=== PATIENT | female | born 1990 | race Caucasian/White ===

== ENCOUNTER 2018-01-13 21:46 | Emergency (ER) | payer MEDICAID ==
[2018-01-13 21:59] VITALS: BP 111/71
--- NOTE | 2018-01-13 22:21 | EDM.PDOC ---
ED HPI GENERAL MEDICAL PROBLEM - General Chief Complaint: ENT Problem Stated Complaint: SINUS INFECTION? Time Seen by Provider: 01/13/18 22:17 Source of Information: Reports: Patient History Limitations: Reports: No Limitations - History of Present Illness INITIAL COMMENTS - FREE TEXT/NARRATIVE: Regi presents today for complaints of sinus congestion, migraine for 7 to 10 days. She also complains of general malaise and body aches. She reports acute fever, chills and sore throat for 2 days with fever to 102.5. She has tried use of acetaminophen for her pain and fever. 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 Psychiatric History: Reports: Depression Endocrine/Metabolic History: Reports: Diabetes, Gestational Dermatologic History: Reports: Eczema - Infectious Disease History Infectious Disease History: Reports: Chicken Pox Social & Family History - Family History Family Medical History: Noncontributory HEENT: Reports: Impaired Vision Cardiac: Reports: [place] Musculoskeletal: Reports: Arthritis Psychiatric: Reports: Anxiety, Depression Oncologic: Reports: Breast, Cervix ED ROS ENT - Review of Systems Review Of Systems: See Below Constitutional: Reports: Fever, Chills, Malaise. Denies: Weakness, Fatigue, Night Sweats, Diaphoresis HEENT: Reports: Nosebleed, Rhinitis, Sinus Problem, Throat Pain. Denies: Ear Discharge, Ear Pain, Nose Pain Respiratory: Reports: Cough. Denies: Shortness of Breath, Wheezing, Sputum Cardiovascular: Denies: Chest Pain, Dyspnea on Exertion, Edema, Lightheadedness , Palpitations, PND, Syncope Endocrine: Reports: No Symptoms GI/Abdominal: Reports: Nausea. Denies: Constipation, Diarrhea, Difficulty Swallowing, Vomiting : Reports: No Symptoms Musculoskeletal: Reports: No Symptoms Skin: Denies: Pallor, Diaphoresis, Bruising, Rash, Erythema, Wound, Lumps, Urticaria Neurological: Reports: No Symptoms Psychiatric: Reports: No Symptoms Hematologic/Lymphatic: Reports: No Symptoms Immunologic: Reports: No Symptoms ED EXAM, ENT - Physical Exam Exam: See Below Text/Narrative:: Regi is an alert and oriented 27 year old female presenting for acute fever ( 102.5), chills and sore throat for 2 days. She has tried use of acetaminophen for her pain and fever. Regi also complains of sinus congestion, migraine for 7 to 10 days with general malaise and body aches. Exam Limited By: No Limitations General Appearance: Alert, WD/WN, Mild Distress Eye Exam: Bilateral Eye: EOMI, Normal Inspection Ears: Normal External Exam, Normal Canal, Hearing Grossly Normal, Normal TMs Nose: Normal Inspection, Injected Turbinates, Other (purulent nasal discharge). No: Nasal Deformity, Nasal Ecchymosis Mouth/Throat: Normal Inspection, Normal Gums, Normal Lips, Pharyngeal Erythema, Throat Pain, Other (Tonsills absent). No: Throat Swelling, Uvular Edema Head: Atraumatic, Normocephalic, Facial Tenderness, Sinus Tenderness. No: Facial Ecchymosis, Facial Swelling Neck: Normal Inspection, Supple, Non-Tender, Full Range of Motion. No: Lymphadenopathy (R), Lymphadenopathy (L) Respiratory/Chest: No Respiratory Distress, Lungs Clear, Normal Breath Sounds, No Accessory Muscle Use, Chest Non-Tender Cardiovascular: Normal Peripheral Pulses, Regular Rate, Rhythm, No Edema, No Murmur, No Rub Back: Normal Inspection, Full Range of Motion. No: CVA Tenderness (R), CVA Tenderness (L) Extremities: Normal Inspection, Normal Range of Motion, Non-Tender, No Pedal Edema, Normal Capillary Refill Neurological: Alert, Oriented, CN II-XII Intact, Normal Cognition, Normal Gait, Normal Reflexes, No Motor/Sensory Deficits Psychiatric: Normal Affect, Normal Mood Skin: Warm, Dry, Intact, Normal Color, No Rash Lymphatic: No Adenopathy Course - Vital Signs Last Recorded V/S: Last Vital Signs Temp 36.6 C 01/13/18 22:22 Pulse 76 01/13/18 22:22 Resp 16 01/13/18 22:22 BP 111/71 01/13/18 22:22 Pulse Ox 100 01/13/18 22:22 - Orders/Labs/Meds Orders: Active Orders 24 hr Category Date Time Status CULTURE STREP A CONFIRMATION [RM] Stat Lab 01/13/18 22:18 Results STREP SCRN A RAPID W CULT CONF [RM] Stat Lab 01/13/18 22:18 Ordered Departure - Departure Time of Disposition: 22:42 Disposition: Home, Self-Care 01 Condition: Good Clinical Impression: Acute sinusitis, Post-nasal drip - Discharge Information Instructions: Sinusitis, Adult, [id number], Sinus Rinse, [id number] Referrals: PCP,None [Primary Care Provider] - Forms: ED Department Discharge Additional Instructions: You have been evaluated and treated in the emergency room tonight for acute sinusitis and post nasal drip. Take Augmentin (antibiotic) one tablet by mouth twice per day for 10 days. You can also buy fluticasone nasal spray over the counter and use two sprays to each nare once a day for congestion. Use of chlorpheniramine 4mg tablet every 4 to 6 hours can help with post nasal drip. This medication can make you sleep. Take acetaminophen and ibuprofen as needed for pain. Return for worsening, issues or concerns. - My Orders Last 24 Hours: My Active Orders 01/13/18 22:18 CULTURE STREP A CONFIRMATION [RM] Stat STREP SCRN A RAPID W CULT CONF [RM] Stat - Assessment/Plan Last 24 Hours: My Active Orders 01/13/18 22:18 CULTURE STREP A CONFIRMATION [RM] Stat STREP SCRN A RAPID W CULT CONF [RM] Stat Assessment:: Acute sinus congestion Post nasal drip Plan: Patient evaluated and treated in the emergency room tonight for acute sinusitis and post nasal drip. Take Augmentin (antibiotic) one tablet by mouth twice per day for 10 days. She can also buy fluticasone nasal spray over the counter and use two sprays to each nare once a day for congestion. Use of chlorpheniramine 4mg tablet every 4 to 6 hours can help with post nasal drip. This medication can make you sleep. Take acetaminophen and ibuprofen as needed for pain. Return for worsening, issues or concerns.
== END 2018-01-13 22:59 | disposition home or self-care (01) ==
LOC: JP.ED 21:46
DX: J01.90 Acute sinusitis, unspecified (principal); R09.82 Postnasal drip; Z79.899 Other long term (current) drug therapy; F32.9 Major depressive disorder, single episode, unspecified
CPT/HCPCS: 87081; 87430; 99284

== ENCOUNTER 2018-01-15 14:19 | Emergency (ER) | payer MEDICAID ==
[2018-01-15 15:13] VITALS: BP 100/62
--- NOTE | 2018-01-15 18:14 | EDM.PDOC ---
ED HPI GENERAL MEDICAL PROBLEM - General Chief Complaint: MUD ENGINEER Problem Stated Complaint: CRAMPING Time Seen by Provider: 01/15/18 17:55 Source of Information: Reports: Patient History Limitations: Reports: No Limitations - History of Present Illness INITIAL COMMENTS - FREE TEXT/NARRATIVE: 27-year-old female who is been having lower pelvic pain for the past 2 months, worse after intercourse, and much worse after intercourse this morning. The pain tends to settle down after an hour or 2 but today it wasn't getting better , she does have a history of ovarian cysts requiring surgery and feels she may have another cyst problem. No fevers or chills, no bowel changes, no dysuria or urinary symptoms. She took a test 2 weeks ago and it was negative. Onset: Sudden (Pain worsened suddenly this morning after intercourse) Location: Reports: Pelvis (Centered in the left pelvis) Severity: Moderate Associated Symptoms: Denies: Fever/Chills, Headaches, Loss of Appetite, Nausea/ Vomiting, Shortness of Breath Left Lower Pelvic Pain Score (Numeric/FACES): 8 - Related Data Allergies Allergy/AdvReac Type Severity Reaction Status Date / Time No Known Allergies Allergy Verified 01/13/18 22:10 Home Meds: Home Meds Desog-E.Estradiol/E.Estradiol [Viorele 28 Day Tablet] 1 tab PO DAILY 11/28/15 [ History] Albuterol [Ventolin HFA] 1 puff IH Q4HR PRN 02/28/16 [History] Olopatadine HCl [Pataday] 1 drop EYERT BID 02/28/16 [History] Past Medical History HEENT History: Reports: Impaired Vision 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 Neurological History: Reports: Migraines Psychiatric History: Reports: Depression Endocrine/Metabolic History: Reports: Diabetes, Gestational Dermatologic History: Reports: Eczema - Infectious Disease History Infectious Disease History: Reports: Chicken Pox - Past Surgical History GI Surgical History: Reports: Appendectomy Female Surgical History: Reports: Other (See Below) Other Female Surgeries/Procedures: right fallopian tube removed due to ectopic Social & Family History - Family History Family Medical History: Noncontributory HEENT: Reports: Impaired Vision Cardiac: Reports: [place] Musculoskeletal: Reports: Arthritis Psychiatric: Reports: Anxiety, Depression Oncologic: Reports: Breast, Cervix - Tobacco Use Smoking Status *Q: Current Every Day Smoker Years of Tobacco use: 10 Packs/Tins Daily: 0.6 - Caffeine Use Caffeine Use: Reports: None - Recreational Drug Use Recreational Drug Use: Yes Drug Use in Last 12 Months: Yes Recreational Drug Type: Reports: Marijuana/Hashish Recreational Drug Use Frequency: Daily ED ROS GENERAL - Review of Systems Review Of Systems: See Below Constitutional: Denies: Fever, Chills HEENT: Reports: No Symptoms Respiratory: Denies: Shortness of Breath Cardiovascular: Denies: Chest Pain GI/Abdominal: Reports: Abdominal Pain. Denies: Nausea, Vomiting : Reports: No Symptoms Skin: Reports: No Symptoms Neurological: Reports: No Symptoms Psychiatric: Reports: No Symptoms ED EXAM, GENERAL - Physical Exam Exam: See Below Exam Limited By: No Limitations General Appearance: Alert, No Apparent Distress Respiratory/Chest: No Respiratory Distress, Lungs Clear Cardiovascular: Regular Rate, Rhythm GI/Abdominal: Soft, Tender (Left lower quadrant, no significant guarding) Neurological: Alert, Oriented Psychiatric: Normal Affect, Normal Mood Skin Exam: Warm, Dry Course - Vital Signs Last Recorded V/S: Last Vital Signs Temp 98.1 F 01/15/18 15:41 Pulse 54 L 01/15/18 15:41 Resp 13 01/15/18 15:41 BP 100/62 01/15/18 15:41 Pulse Ox 100 01/15/18 15:41 - Orders/Labs/Meds Orders: Active Orders 24 hr Category Date Time Status Pelvis Non OB Ltd [US] Stat Exams 01/15/18 17:53 Taken Transvaginal Non OB [US] Stat Exams 01/15/18 17:54 Taken Labs: Laboratory Tests 01/15/18 01/15/18 01/15/18 Range/Units 18:03 18:03 18:03 WBC 4.9 (4.5-11.0) K/uL RBC 4.51 (3.30-5.50) M/uL Hgb 14.2 (12.0-15.0) g/dL Hct 40.6 (36.0-48.0) % MCV 90 (80-98) fL MCH 32 H (27-31) pg MCHC 35 (32-36) % Plt Count 184 (150-400) K/uL Neut % (Auto) 46 (36-66) % Lymph % (Auto) 41 (24-44) % [place] % (Auto) 10 H (2-6) % Eos % (Auto) 2 (2-4) % Baso % (Auto) 1 (0-1) % Sodium 139 L (140-148) mmol/L Potassium 3.6 (3.6-5.2) mmol/L Chloride 102 (100-108) mmol/L Carbon Dioxide 27 (21-32) mmol/L Anion Gap 13.6 (5.0-14.0) mmol/L BUN 13 (7-18) mg/dL Creatinine 0.6 (0.6-1.0) mg/dL Est Cr Clr Drug Dosing 112.38 mL/min Estimated GFR (MDRD) > 60 (>60) Glucose 88 (74-106) mg/dL Calcium 8.8 (8.5-10.1) mg/dL HCG, Qual Negative - Re-Assessments/Exams Free Text/Narrative Re-Assessment/Exam: 01/15/18 18:14 CBC, BMP, qualitative beta-hCG are drawn and a pelvic ultrasound will be obtained. 01/15/18 19:30 was negative. CBC was normal. Pelvic ultrasound did confirm a large complex hemorrhagic mass of the left ovary. The right ovary was normal with good blood flow. There was very little free fluid. She was tender however over the mass. She is very anxious to have this taken care of, does not want to have kids in the future and I discussed the case with Dr. Quan and he agreed to see her tomorrow morning for likely oophorectomy. 01/15/18 19:33 Patient was discharged with 10 Percocet to take as needed for pain control tonight and will return tomorrow morning. Departure - Departure Time of Disposition: 19:42 Disposition: Home, Self-Care 01 Condition: Good Clinical Impression: Hemorrhagic cyst of left ovary - Discharge Information Instructions: Ovarian Cyst, [id number] Referrals: PCP,None [Primary Care Provider] - Forms: ED Department Discharge Care Plan Goals: Use pain control as directed, and don't eat anything after 2 AM. Return to the hospital around 8 to 8:30 to be admitted for a likely surgical treatment for your ovarian cyst. - My Orders Last 24 Hours: My Active Orders 01/15/18 17:53 Pelvis Non OB Ltd [US] Stat 01/15/18 17:54 Transvaginal Non OB [US] Stat - Assessment/Plan Last 24 Hours: My Active Orders 01/15/18 17:53 Pelvis Non OB Ltd [US] Stat 01/15/18 17:54 Transvaginal Non OB [US] Stat
== END 2018-01-15 19:42 | disposition home or self-care (01) ==
LOC: JP.ED 14:19
DX: N83.202 Unspecified ovarian cyst, left side (principal); F17.210 Nicotine dependence, cigarettes, uncomplicated; F32.9 Major depressive disorder, single episode, unspecified; Z79.899 Other long term (current) drug therapy; Z90.49 Acquired absence of other specified parts of digestive tract
CPT/HCPCS: 36415; 76830; 76857; 80048; 84703; 85025; 99284-25

== ENCOUNTER 2018-01-16 08:07 | Day surgery (SDC) | payer MEDICAID ==
[2018-01-16] MEDS ORDERED: Acetaminophen 500 MG Tab PO ONE (09:05)
[2018-01-16] MEDS ORDERED: Dextrose 5%-Lactated Ringers 1,000 ML IV SCH (09:15)
[2018-01-16] MEDS ORDERED: Meropenem 500 MG SDV ONE (09:20)
[2018-01-16] MEDS ORDERED: Bupivacaine 0.5%/EPINEPHrine 1:200,000 50 ML MDV ONE (09:20)
[2018-01-16] MEDS ORDERED: cefOXitin 2 GM in Sodium Chloride 0.9% 50 ML IV ONE (09:30)
[2018-01-16] MEDS ORDERED: Propofol 200 MG/20 ML SDV ONE (09:36)
[2018-01-16] MEDS ORDERED: Neostigmine Methylsulfate 1 MG/ML 5 ML Syringe ONE (09:36)
[2018-01-16] MEDS ORDERED: Dexamethasone 4 MG/ML SDV ONE (09:36)
[2018-01-16] MEDS ORDERED: Glycopyrrolate 0.2 MG/ML 5 ML MDV ONE (09:36)
[2018-01-16] MEDS ORDERED: Ondansetron 4 MG/2 ML SDV ONE (09:36)
[2018-01-16] MEDS ORDERED: fentaNYL 250 MCG/5 ML SDV ONE (09:36)
[2018-01-16] MEDS ORDERED: Albuterol/Ipratropium 3.0-0.5 MG/3 ML Neb Soln NEB ONE (10:15)
[2018-01-16] MEDS ORDERED: HYDROmorphone/Normal Saline 15 MG/30 ML PCA IV PRN (10:40)
[2018-01-16] MEDS ORDERED: Naloxone 0.4 MG/ML SDV IVPUSH PRN (10:40)
[2018-01-16] MEDS ORDERED: Ketamine 500 MG/5 ML MDV IV SCH (11:00)
[2018-01-16] MEDS ORDERED: hydrOXYzine HCl 100 MG/2 ML SDV IM ONE (11:58)
[2018-01-16] MEDS ORDERED: Ondansetron 4 MG/2 ML SDV IV PRN (13:22)
[2018-01-16] MEDS ORDERED: hydrOXYzine HCl 100 MG/2 ML SDV IM PRN (13:23)
[2018-01-16] MEDS ORDERED: Albuterol 8 GM Inhaler INH PRN (13:25)
[2018-01-16] MEDS: Acetaminophen/oxyCODONE 325-5 MG Tab PO PRN ×2 (16:58→20:25)
[2018-01-16] MEDS: Dextrose 5%-Lactated Ringers 1,000 ML IV SCH (18:59)
[2018-01-17] MEDS: Acetaminophen/oxyCODONE 325-5 MG Tab PO PRN ×2 (00:20→05:23)
[2018-01-17] MEDS: Dextrose 5%-Lactated Ringers 1,000 ML IV SCH (02:59)
[2018-01-17 07:39] VITALS: BP 114/71
[2018-01-17] MEDS ORDERED: Acetaminophen/oxyCODONE 325-5 MG Tab PO PRN (07:47)
[2018-01-17] MEDS ORDERED: Docusate Sodium 100 MG Cap PO SCH (09:00)
[2018-01-17] MEDS ORDERED: Magnesium Hydroxide 400 MG/5 ML Susp 30 ML Cup PO ONE (09:15)
--- NOTE | 2018-01-17 12:35 | DISCH ---
ADMISSION DIAGNOSIS: Hemorrhagic left ovarian cyst. DISCHARGE DIAGNOSES: Diagnostic laparoscopy with left salpingo-oophorectomy and ablation of endometriosis for hemorrhagic ovarian cyst and endometriosis. Date of surgery, 01/16/2018. HISTORY: Regi Jain is a 27-year-old female who presented with severe left lower quadrant abdominal pain. After preoperative evaluation and discussion of possible risks and possible complications, she wished to proceed with surgical procedure. HOSPITAL COURSE: Regi had her surgery on 01/16/2018. She had no operative complications. On postop day #1, she was ready to be discharged to home. PHYSICAL EXAMINATION: GENERAL: Regi is a 27-year-old female. VITAL SIGNS: Height is 5 feet 2 inches. Weight is 120 pounds. TPR 95.6, 85, 16, and blood pressure 114/71. HEENT: Negative. NECK: Supple. HEART: Regular rate and rhythm. LUNGS: Clear. ABDOMEN: Dressings dry and intact. Abdominal binder is on. EXTREMITIES: Without peripheral edema. DISPOSITION: Discharged to home. CONDITION: Stable and improving. FOLLOWUP: Inga Patterson PA-C, at [facility] on 01/25/2018 at 10 a.m. DISCHARGE MEDICATIONS: Home Medications: 1. Percocet 5/325 mg 1 to 2 oral q.4 hours p.r.n. pain, #40. 2. Colace 100 mg oral daily, #100. 3. Milk of magnesia 30 mL. Two were sent home with the patient to take one today and one in a.m. DISCHARGE DIET: Regular diet as tolerated. ACTIVITY: No lifting greater than 10 pounds for 6 weeks[address], do not drive while on pain medication. Shower/bathing, may shower. DISCHARGE INSTRUCTIONS: Notify provider if any fever, increased pain, nausea, vomiting, drainage from incision sites. Wound and incision care, keep site clean and dry. Wear abdominal binder for 6 weeks and then as tolerated. Use incentive spirometer 10 times every hour while awake for 1 week.
--- NOTE | 2018-01-18 10:47 | OR ---
DATE OF PROCEDURE: 01/16/2018 PREOPERATIVE DIAGNOSIS: Painful hemorrhagic left ovarian cyst. POSTOPERATIVE DIAGNOSES: 1. Painful hemorrhagic left ovarian cyst. 2. Left-sided pelvic endometriosis. PROCEDURE PERFORMED: Diagnostic laparoscopy with, 1. Left salpingo-oophorectomy, (30942). 2. Ablation of pelvic endometriosis, (79902). ANESTHESIA: General. INDICATION FOR PROCEDURE: The patient presents with some ongoing abdominal pain and CT scan shows what appears to be hemorrhagic ovarian cyst. The patient is status post previous left salpingectomy for an ectopic . She has had two children and she and her significant other this morning no not desire further childbearing, although at this young age we certainly would maintain that possibility if it appears to be clinically feasible. The plan will be to proceed with diagnostic laparoscopy, laparotomy if necessary, and excision of the hemorrhagic left ovarian cyst as well as probable ovary. If the uterine tube on that side is more or less densely adherent and part of the overall pathologic picture that would be removed as well. The patient does have a normal-appearing right ovary on preoperative imaging. So this would likely be left in place so that she would not become immediately menopausal. She is aware that if we needed to take the tube out on the left side as part of this procedure, that she would be functionally sterile apart from in vitro fertilization approach with harvesting of an ovum from the remaining right ovary. Potential risks, otherwise, including bleeding, infection, injury to underlying viscera or urinary tract were reviewed, and the patient wishes to proceed. DETAILS OF PROCEDURE: The patient was taken to the operating room and placed in a supine position. After general endotracheal anesthesia was induced, a Jimenez catheter was inserted, and the abdomen was prepped and draped. At this point, three trocars were placed across the upper abdomen, two of these were 12-mm trocars, one was 5-mm trocar. The lower abdomen was examined. The ovary was identified and this was found to be entirely normal in appearance as the left ovary was occupied by large amount of hemorrhage. The ovarian tissue and uterine tube were more or less one confluent mass and do not feel feasible to save the ovarian tissue or uterine tube in this case. Given this, the infundibulopelvic ligament, uterine tube, and remaining attachments to the left tube and ovary were divided with DAWN tammy and specimen was then placed in a specimen bag and after puncturing the cyst, the fluid was evacuated. The incision still needed to be enlarged somewhat in order to retrieve the specimen, which was then removed at that point. Inspection of the pelvis revealed no further bleeding or other problems from the staple lines. The patient did have some scattered pelvic endometriosis on the left side of the pelvic wall. These were areas of perhaps 2 to 3 mm implants and overall ablated with electrocautery. At that point, no further problems were noted. The trocars were removed. The fascia at the point where the specimen had been retrieved was closed at fascial level with 4-0 Vicryl sutures, and skin at each incision with 4-0 Vicryl skin stitch. Dressing was applied. The patient was taken to the recovery room in satisfactory condition. Long Quan MD /[id number]
== END 2018-01-17 08:43 | disposition home or self-care (01) ==
LOC: JP.SDS 08:07 → JP.ACU 08:07 → JP.MS 12:10 → JP.SDS 01-17 08:43
PROVIDERS: ATTEND Surgery
DX: N83.202 Unspecified ovarian cyst, left side (principal); N80.3 Endometriosis of pelvic peritoneum; G43.909 Migraine, unspecified, not intractable, without status migrainosus; F32.9 Major depressive disorder, single episode, unspecified; F17.210 Nicotine dependence, cigarettes, uncomplicated; Z90.49 Acquired absence of other specified parts of digestive tract
CPT/HCPCS: 58661; 58662; 94640; A9270; J0694; J1100; J1170; J2405; J2704; J2710; J3010; J3410; J7042; J7050; J7620; J2185

== ENCOUNTER 2019-09-22 17:11 | Emergency (ER) | payer SELFPAY ==
[2019-09-22 17:51] VITALS: BP 119/62; PULSE 61
--- NOTE | 2019-09-22 18:32 | EDM.PDOC ---
ED HPI GENERAL MEDICAL PROBLEM - General Chief Complaint: Abdominal Pain Stated Complaint: LOWER AB PAIN Time Seen by Provider: 09/22/19 18:16 Source of Information: Reports: Patient History Limitations: Reports: No Limitations - History of Present Illness INITIAL COMMENTS - FREE TEXT/NARRATIVE: Patient presents describing sudden onset LLQ/flank pain around 1600 today. This happened before and has been attributed to ruptured ovarian cysts. She had her right ovary and both Fallopian tubes removed several years ago. The left ovary and uterus remain. Her last menstrual period was about one month ago. 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 Neurological History: Reports: Migraines Psychiatric History: Reports: Anxiety, Depression, Psych Hospitalization(s), Suicide Attempt Endocrine/Metabolic History: Reports: Diabetes, Gestational Dermatologic History: Reports: Eczema - Infectious Disease History Infectious Disease History: Reports: Chicken Pox - Past Surgical History HEENT Surgical History: Reports: Adenoidectomy, Oral Surgery, Tonsillectomy GI Surgical History: Reports: Appendectomy Female Surgical History: Reports: Other (See Below) Other Female Surgeries/Procedures: right fallopian tube removed due to ectopic Endocrine Surgical History: Reports: None Neurological Surgical History: Reports: None Dermatological Surgical History: Reports: None Social & Family History - Family History Family Medical History: Noncontributory HEENT: Reports: Impaired Vision Cardiac: Reports: [place] : Reports: Renal Calculus Musculoskeletal: Reports: Arthritis Psychiatric: Reports: Anxiety, Depression Oncologic: Reports: Breast, Cervix - Caffeine Use Caffeine Use: Reports: None ED ROS GENERAL - Review of Systems Review Of Systems: See Below Constitutional: Reports: No Symptoms GI/Abdominal: Reports: Abdominal Pain (Low central pain.) : Reports: No Symptoms ED EXAM, GI/ABD - Physical Exam Exam: See Below Exam Limited By: No Limitations General Appearance: No Apparent Distress (She is seated on the cart and room 4 with hips and knees flexed.) Respiratory/Chest: No Respiratory Distress Cardiovascular: Regular Rate, Rhythm GI/Abdominal Exam: Soft, Tender (Diffuse mild tenderness all the way across the lower third of the abdomen. No flank tenderness. No CVA pain.) Back Exam: Normal Inspection Course - Vital Signs Last Recorded V/S: Last Vital Signs Temp 35.8 C 09/22/19 18:23 Pulse 61 09/22/19 18:23 Resp 13 09/22/19 18:23 BP 119/62 09/22/19 18:23 Pulse Ox 98 09/22/19 18:23 - Orders/Labs/Meds Orders: Active Orders 24 hr Category Date Time Status Saline Lock Insert [OM.PC] Routine Oth 09/22/19 18:43 Ordered Labs: Laboratory Tests 09/22/19 Range/Units 19:12 WBC 9.7 (4.5-11.0) K/uL RBC 4.40 (3.30-5.50) M/uL Hgb 13.7 (12.0-15.0) g/dL Hct 41.1 (36.0-48.0) % MCV 93 (80-98) fL MCH 31 (27-31) pg MCHC 33 (32-36) % Plt Count 215 (150-400) K/uL Neut % (Auto) 74 H (36-66) % Lymph % (Auto) 17 L (24-44) % [place] % (Auto) 8 H (2-6) % Eos % (Auto) 1 L (2-4) % Baso % (Auto) 0 (0-1) % Meds: Medications Discontinued Medications Generic Name Dose Route Start Last Admin Trade Name Freq PRN Reason Stop Dose Admin Ketorolac Tromethamine 30 mg 09/22/19 18:45 09/22/19 18:54 Toradol IVPUSH 09/22/19 18:46 30 mg ONETIME ONE Administration Sodium Chloride 10 ml 09/22/19 18:43 Saline Flush FLUSH ASDIRECTED PRN Keep Vein Open - Radiology Interpretation Free Text/Narrative:: Pelvic ultrasound ordered by me shows an intact right ovary with no obvious cysts or free fluid. Uterus is also present. The left ovary is absent as are both fallopian tubes. No acute problems are identified. - Re-Assessments/Exams Free Text/Narrative Re-Assessment/Exam: 09/22/19 20:56 I returned later to review her findings. Pain was improved with ketorolac 30 mg IV. I reassured her with findings of the ultrasound and updated her knowledge of post surgery anatomy indicating that her right ovary is the residual ovary. I recommended ibuprofen 800 mg 3 times daily for the next several days to improve comfort. Follow-up with primary care with additional concerns. She was discharged in stable condition. Departure - Departure Time of Disposition: 20:06 Disposition: Home, Self-Care 01 Condition: Good Clinical Impression: Pelvic pain - Discharge Information *PRESCRIPTION DRUG MONITORING PROGRAM REVIEWED*: Not Applicable *COPY OF PRESCRIPTION DRUG MONITORING REPORT IN PATIENT ZACHARY: Not Applicable Instructions: Pelvic Pain, Female Referrals: PCP,None [Primary Care Provider] - Forms: ED Department Discharge Additional Instructions: Use ibuprofen 800 mg 3 times a day regularly over the next 5 days. Recheck with primary care regarding any other concerns. Return to ER if feeling worse in anyway. Sepsis Event Note - Focused Exam Vital Signs: Vital Signs Temp Pulse Resp BP Pulse Ox 09/22/19 18:23 35.8 C 61 13 119/62 98 09/22/19 17:50 35.8 C 61 13 119/62 98 Date Exam was Performed: 09/22/19 Time Exam was Performed: 20:54 - My Orders Last 24 Hours: My Active Orders 09/22/19 18:43 Saline Lock Insert [OM.PC] Routine - Assessment/Plan Last 24 Hours: My Active Orders 09/22/19 18:43 Saline Lock Insert [OM.PC] Routine
[2019-09-22] MEDS ORDERED: Sodium Chloride 0.9% 10 ML Syringe FLUSH PRN (18:43)
[2019-09-22] MEDS ORDERED: Ketorolac 30 MG/ML SDV IVPUSH ONE (18:45)
--- NOTE | 2019-09-22 20:14 | CRLUS ---
INDICATION: Left lower quadrant and flank pain TECHNIQUE: Ultrasound pelvis transabdominal. Patient refused transvaginal imaging. COMPARISON: Ultrasound 01/15/2018 FINDINGS: Uterus: Measures 9.6 x 4.4 x 6.1 cm. Normal echotexture of the myometrium. No masses. Endometrium: Normal in thickness measuring 1.5 cm no sign of endometrial mass or fluid. Right ovary: Measures 3.6 x 2.6 x 3.0 cm. Small follicles noted. No ovarian or adnexal masses. Normal arterial and venous blood flow. Left ovary: Not visualized. Reported surgically absent. Cul-de-sac: No significant free fluid. IMPRESSION: No acute abnormality identified. Dictated by Osorio Carrasco MD @ 09/22/2019 8:13:21 PM Dictated by: Osorio Carrasco MD @ 09/22/2019 20:13:28 (Electronically Signed)
== END 2019-09-22 20:12 | disposition home or self-care (01) ==
LOC: JP.ED 17:11
DX: R10.2 Pelvic and perineal pain (principal); Z88.5 Allergy status to narcotic agent; Z88.6 Allergy status to analgesic agent; Z90.79 Acquired absence of other genital organ(s)
CPT/HCPCS: 36415; 76856; 85025; 96374; 99283; 99284-25; J1885